=== PATIENT | male | born 1940 | race Caucasian/White ===

== ENCOUNTER 2018-03-09 11:09 | Inpatient (IN) | payer MEDICARE, OTHER ==
[2018-03-09 11:51] LABS: ADD MAN DIFF? NO
[2018-03-09] MEDS: SOD CHLORIDE 0.9% 1,000 ML IV ×2 (11:51→22:25)
[2018-03-09 11:53] LABS: BASOPHILS % 0.8 % (0.0-2.0); EOSINOPHILS # 0.2 10^3/ul (0.0-0.5); EOSINOPHILS % 3.3 % (0.0-7.0); HEMATOCRIT 33.5 % (42.0-52.0); HEMOGLOBIN 10.6 g/dl (14.0-18.0); LYMPHOCYTES % 41.3 % (15.0-51.0); MEAN CORPUSCULAR HEMOGLOBIN 29.3 pg (29.0-33.0); MEAN CORPUSCULAR HGB CONC 31.6 g/dl (32.0-37.0); MEAN CORPUSCULAR VOLUME 92.5 fl (82.0-101.0); MEAN PLATELET VOLUME 11.9 fl (7.4-10.4); MONOCYTE # 0.6 10^3/ul (0.3-0.9); MONOCYTES % 11.7 % (0.0-11.0); NEUTROPHIL # 2.1 10^3/ul (1.6-7.5); NEUTROPHILS % 42.5 % (39.0-77.0); PLATELET COUNT 132 10^3/UL (140-415); RED BLOOD COUNT 3.62 10^6/ul (4.70-6.10); RED CELL DISTRIBUTION WIDTH 13.5 % (11.5-14.5)
[2018-03-09 11:53] LABS: WHITE BLOOD COUNT 4.9 10^3/ul (4.8-10.8)
[2018-03-09 12:10] LABS: ALANINE AMINOTRANSFERASE 34 IU/L (13-69); ALBUMIN 3.5 g/dl (3.3-4.9); ALBUMIN/GLOBULIN RATIO 1.34; ALKALINE PHOSPHATASE 70 IU/L (42-121); ANION GAP 12 (8-16); ASPARTATE AMINO TRANSFERASE 22 IU/L (15-46); BILIRUBIN,INDIRECT 0.3 mg/dl (0-1.1); BILIRUBIN,TOTAL 0.3 mg/dl (0.2-1.3); BLOOD UREA NITROGEN 22 mg/dl (7-20); CALCIUM 8.7 mg/dl (8.4-10.2); CARBON DIOXIDE 27 mmol/L (21-31); CHLORIDE 105 mmol/L (97-110); GLUCOSE 141 mg/dl (70-220); LIPASE 76 U/L (23-300); POTASSIUM 4.4 mmol/L (3.5-5.1); SODIUM 140 mmol/L (135-144); TOTAL PROTEIN 6.1 g/dl (6.1-8.1)
[2018-03-09 12:22] LABS: B-TYPE NATRIURETIC PEPTIDE 305 PG/ML (0-450); TROPONIN-I < 0.012 ng/ml (0.000-0.120)
[2018-03-09] MEDS ORDERED: ACETAMINOPHEN 500 MG TAB (12:48)
[2018-03-09] MEDS: FUROSEMIDE 40 MG INJ IV (13:33)
[2018-03-09] MEDS ORDERED: BISACODYL 10 MG SUPP PR (17:30)
[2018-03-09] MEDS ORDERED: NACL 0.9% 3 ML SYG IV (17:30)
[2018-03-09] MEDS ORDERED: ONDANSETRON 4 MG INJ IV (17:30)
[2018-03-09] MEDS ORDERED: SODIUM CHLORIDE 0.9% 1L BAG IV (17:30)
[2018-03-09] MEDS ORDERED: ACETAMINOPHEN 325 MG TAB PO (17:30)
[2018-03-09] MEDS: INSULIN ASPART [NOVOLOG] 3 ML PEN SC ×2 (18:00→22:54)
[2018-03-09] MEDS ORDERED: DEXTROSE 50% 50 ML SYRINGE IV ×2 (19:00)
[2018-03-09] MEDS ORDERED: GLUCAGON 1 MG INJ IM (19:00)
[2018-03-09] MEDS ORDERED: GLUCOSE GEL 15 GRAM TUBE PO ×2 (19:00)
[2018-03-09] MEDS ORDERED: GLUCOSE GEL 15 GRAM TUBE BUCCAL (19:00)
[2018-03-09] MEDS ORDERED: RANOLAZINE (SR) 500 MG TAB PO (21:00)
[2018-03-09 21:16] LABS: CREATINE KINASE 126 IU/L (23-200)
[2018-03-09 21:30] LABS: CK INDEX 1.9; CK-MB 2.38 ng/ml (0.0-2.4); TROPONIN-I < 0.012 ng/ml (0.000-0.120)
[2018-03-09] MEDS: RIVAROXABAN 20 MG TABLET PO (22:25)
[2018-03-09] MEDS: MONTELUKAST 10 MG TAB PO (22:25)
[2018-03-09] MEDS: ROSUVASTATIN CALCIUM 40 MG TABLET PO (22:25)
[2018-03-10 03:35] LABS: HEMOGLOBIN A1C 7.9 % (0-5.9)
[2018-03-10 03:40] LABS: ALANINE AMINOTRANSFERASE 31 IU/L (13-69); ALBUMIN 3.1 g/dl (3.3-4.9); ALBUMIN/GLOBULIN RATIO 1.24; ALKALINE PHOSPHATASE 62 IU/L (42-121); ANION GAP 9 (8-16); ASPARTATE AMINO TRANSFERASE 22 IU/L (15-46); BILIRUBIN,INDIRECT 0.1 mg/dl (0-1.1); BILIRUBIN,TOTAL 0.1 mg/dl (0.2-1.3); BLOOD UREA NITROGEN 25 mg/dl (7-20); CALCIUM 8.6 mg/dl (8.4-10.2); CARBON DIOXIDE 29 mmol/L (21-31); CHLORIDE 108 mmol/L (97-110); CREATININE 1.34 mg/dl (0.61-1.24); GLUCOSE 185 mg/dl (70-220); MAGNESIUM 1.7 mg/dl (1.7-2.5); PHOSPHORUS 4.6 mg/dl (2.5-4.9); POTASSIUM 4.2 mmol/L (3.5-5.1); SODIUM 142 mmol/L (135-144); TOTAL PROTEIN 5.6 g/dl (6.1-8.1)
[2018-03-10 05:00] LABS: CREATINE KINASE 118 IU/L (23-200)
[2018-03-10 05:13] LABS: CK INDEX 2.4; CK-MB 2.86 ng/ml (0.0-2.4); TROPONIN-I < 0.012 ng/ml (0.000-0.120)
[2018-03-10] MEDS: PANTOPRAZOLE 40 MG INJ IV (06:22)
[2018-03-10 07:59] LABS: ADD UMIC YES; UR ASCORBIC ACID NEGATIVE (NEGATIVE); UR BILIRUBIN (Dip) NEGATIVE (NEGATIVE); UR BLOOD (Dip) NEGATIVE (NEGATIVE); UR CLARITY CLEAR (CLEAR); UR COLOR YELLOW (YELLOW); UR GLUCOSE (Dip) NEGATIVE (NEGATIVE); UR KETONES (Dip) NEGATIVE (NEGATIVE); UR LEUKOCYTE ESTERASE (Dip) TRACE Leu/ul (NEGATIVE); UR NITRITE (Dip) NEGATIVE (NEGATIVE); UR RBC 2 /HPF (0-5); UR SPECIFIC GRAVITY (Dip) 1.014 (1.003-1.030); UR TOTAL PROTEIN (Dip) NEGATIVE (NEGATIVE); UR UROBILINOGEN (Dip) 1+ mg/dL (NEGATIVE); UR WBC 37 /HPF (0-5)
[2018-03-10] MEDS: INSULIN ASPART [NOVOLOG] 3 ML PEN SC ×4 (08:26→20:10)
[2018-03-10] MEDS: LINAGLIPTIN 5 MG TABLET PO (08:29)
[2018-03-10] MEDS: LUBIPROSTONE 24 MCG CAP PO (08:30)
[2018-03-10] MEDS: SOLIFENACIN 5 MG TAB PO (08:30)
[2018-03-10] MEDS: CREON (24K-76K-120K) 1 CAP PO ×3 (08:30→16:45)
[2018-03-10] MEDS: LEVOTHYROXINE 75 MCG TAB PO (08:31)
[2018-03-10] MEDS: TERAZOSIN 5 MG CAP PO (08:31)
[2018-03-10 15:58] LABS: AMPHETAMINE/METHAMPHETAMINE Negative (NEGATIVE); BENZODIAZEPINES Negative (NEGATIVE); COCAINE Negative (NEGATIVE)
[2018-03-10] MEDS: CEFTRIAXONE 1 GM/50 ML (PMX) 50 ML IVPB (16:45)
[2018-03-10 17:03] LABS: BARBITURATES Negative (NEGATIVE); CANNABINOIDS Negative (NEGATIVE); OPIATES Negative (NEGATIVE)
[2018-03-10] MEDS: RIVAROXABAN 20 MG TABLET PO (17:39)
[2018-03-10] MEDS: ROSUVASTATIN CALCIUM 40 MG TABLET PO (20:11)
[2018-03-10] MEDS: MONTELUKAST 10 MG TAB PO (20:11)
[2018-03-10] MEDS: TAMSULOSIN (SR) 0.4 MG CAP PO (20:11)
[2018-03-11] MEDS: PANTOPRAZOLE 40 MG INJ IV (06:04)
[2018-03-11 07:12] LABS: ADD MAN DIFF? NO
[2018-03-11 07:17] LABS: WHITE BLOOD COUNT 5.2 10^3/ul (4.8-10.8)
[2018-03-11 07:17] LABS: BASOPHILS % 0.8 % (0.0-2.0); EOSINOPHILS # 0.2 10^3/ul (0.0-0.5); EOSINOPHILS % 3.9 % (0.0-7.0); HEMOGLOBIN 10.6 g/dl (14.0-18.0); LYMPHOCYTES # 2.2 10^3/ul (0.8-2.9); LYMPHOCYTES % 42.9 % (15.0-51.0); MEAN CORPUSCULAR HEMOGLOBIN 29.9 pg (29.0-33.0); MEAN CORPUSCULAR HGB CONC 33.1 g/dl (32.0-37.0); MEAN CORPUSCULAR VOLUME 90.1 fl (82.0-101.0); MEAN PLATELET VOLUME 12.5 fl (7.4-10.4); MONOCYTE # 0.6 10^3/ul (0.3-0.9); MONOCYTES % 10.9 % (0.0-11.0); NEUTROPHIL # 2.1 10^3/ul (1.6-7.5); NEUTROPHILS % 41.1 % (39.0-77.0); PLATELET COUNT 129 10^3/UL (140-415); RED BLOOD COUNT 3.55 10^6/ul (4.70-6.10); RED CELL DISTRIBUTION WIDTH 13.6 % (11.5-14.5)
[2018-03-11 07:47] LABS: ANION GAP 11 (8-16); BLOOD UREA NITROGEN 21 mg/dl (7-20); CALCIUM 8.5 mg/dl (8.4-10.2); CARBON DIOXIDE 27 mmol/L (21-31); CHLORIDE 104 mmol/L (97-110); CREATININE 1.05 mg/dl (0.61-1.24); GLUCOSE 197 mg/dl (70-220); POTASSIUM 4.2 mmol/L (3.5-5.1); SODIUM 138 mmol/L (135-144)
[2018-03-11] MEDS: CREON (24K-76K-120K) 1 CAP PO ×3 (08:03→17:06)
[2018-03-11] MEDS: SOLIFENACIN 5 MG TAB PO (08:03)
[2018-03-11] MEDS: LEVOTHYROXINE 75 MCG TAB PO (08:03)
[2018-03-11] MEDS: LINAGLIPTIN 5 MG TABLET PO (08:03)
[2018-03-11] MEDS: LUBIPROSTONE 24 MCG CAP PO (08:03)
[2018-03-11] MEDS: TERAZOSIN 5 MG CAP PO (08:04)
[2018-03-11] MEDS: INSULIN ASPART [NOVOLOG] 3 ML PEN SC ×4 (08:14→20:11)
[2018-03-11] MEDS: MAGNESIUM CITRATE 300 ML BTL PO (11:34)
[2018-03-11] MEDS: FUROSEMIDE 20 MG INJ IV (11:35)
[2018-03-11] MEDS: CEFTRIAXONE 1 GM/50 ML (PMX) 50 ML IVPB (15:05)
[2018-03-11] MEDS: RIVAROXABAN 20 MG TABLET PO (17:06)
[2018-03-11] MEDS: MONTELUKAST 10 MG TAB PO (20:10)
[2018-03-11] MEDS: ROSUVASTATIN CALCIUM 40 MG TABLET PO (20:10)
[2018-03-11] MEDS: TAMSULOSIN (SR) 0.4 MG CAP PO (20:10)
[2018-03-11] MEDS: MAGNESIUM HYDROXIDE 30ML CUP PO (20:11)
[2018-03-11] MEDS: DOCUSATE SODIUM 100 MG CAP PO (20:11)
[2018-03-11] MEDS: INSULIN DETEMIR [LEVEMIR] (100 UNITS/ML) SYG SC (20:14)
[2018-03-12] MEDS: PANTOPRAZOLE 40 MG INJ IV (06:35)
[2018-03-12] MEDS: CREON (24K-76K-120K) 1 CAP PO ×2 (07:35→11:48)
[2018-03-12] MEDS: LEVOTHYROXINE 75 MCG TAB PO (07:35)
[2018-03-12] MEDS: SOLIFENACIN 5 MG TAB PO (07:36)
[2018-03-12] MEDS: LINAGLIPTIN 5 MG TABLET PO (07:36)
[2018-03-12] MEDS: FUROSEMIDE 20 MG INJ IV (07:36)
[2018-03-12] MEDS: TERAZOSIN 5 MG CAP PO (07:36)
[2018-03-12] MEDS: INSULIN ASPART [NOVOLOG] 3 ML PEN SC ×2 (08:10→12:12)
[2018-03-12 09:13] LABS: ADD MAN DIFF? NO
[2018-03-12 09:19] LABS: WHITE BLOOD COUNT 5.9 10^3/ul (4.8-10.8)
[2018-03-12 09:19] LABS: BASOPHIL # 0.1 10^3/ul (0.0-0.1); BASOPHILS % 0.8 % (0.0-2.0); EOSINOPHILS # 0.2 10^3/ul (0.0-0.5); EOSINOPHILS % 2.9 % (0.0-7.0); HEMATOCRIT 36.4 % (42.0-52.0); HEMOGLOBIN 11.8 g/dl (14.0-18.0); LYMPHOCYTES % 33.2 % (15.0-51.0); MEAN CORPUSCULAR HEMOGLOBIN 29.4 pg (29.0-33.0); MEAN CORPUSCULAR HGB CONC 32.4 g/dl (32.0-37.0); MEAN CORPUSCULAR VOLUME 90.8 fl (82.0-101.0); MEAN PLATELET VOLUME 12.3 fl (7.4-10.4); MONOCYTE # 0.7 10^3/ul (0.3-0.9); MONOCYTES % 12.4 % (0.0-11.0); NEUTROPHILS % 50.2 % (39.0-77.0); PLATELET COUNT 141 10^3/UL (140-415); RED BLOOD COUNT 4.01 10^6/ul (4.70-6.10); RED CELL DISTRIBUTION WIDTH 13.4 % (11.5-14.5)
[2018-03-12 09:47] LABS: ANION GAP 14 (8-16); BLOOD UREA NITROGEN 22 mg/dl (7-20); CALCIUM 9.2 mg/dl (8.4-10.2); CARBON DIOXIDE 31 mmol/L (21-31); CHLORIDE 99 mmol/L (97-110); CREATININE 1.13 mg/dl (0.61-1.24); GLUCOSE 239 mg/dl (70-220); POTASSIUM 4.5 mmol/L (3.5-5.1); SODIUM 139 mmol/L (135-144)
[2018-03-12] MEDS: MAGNESIUM HYDROXIDE 30ML CUP PO (11:48)
[2018-03-12] MEDS: CEFTRIAXONE 1 GM/50 ML (PMX) 50 ML IVPB (16:00)
== END 2018-03-12 16:52 | disposition home or self-care (01) | DRG 917 ==
LOC: E/R 11:09 → TEL 14:57
DX: T40.2X1A Poisoning by other opioids, accidental (unintentional), initial encounter (principal); G93.41 Metabolic encephalopathy; I50.21 Acute systolic (congestive) heart failure; N17.9 Acute kidney failure, unspecified; N39.0 Urinary tract infection, site not specified; I11.0 Hypertensive heart disease with heart failure; E66.01 Morbid (severe) obesity due to excess calories; E11.21 Type 2 diabetes mellitus with diabetic nephropathy; E11.40 Type 2 diabetes mellitus with diabetic neuropathy, unspecified; E03.9 Hypothyroidism, unspecified; E78.5 Hyperlipidemia, unspecified; I95.9 Hypotension, unspecified; I48.0 Paroxysmal atrial fibrillation; M19.90 Unspecified osteoarthritis, unspecified site; M10.9 Gout, unspecified; N40.0 Benign prostatic hyperplasia without lower urinary tract symptoms; Z68.36 Body mass index [BMI] 36.0-36.9, adult; Z86.718 Personal history of other venous thrombosis and embolism; Z79.4 Long term (current) use of insulin; Z79.02 Long term (current) use of antithrombotics/antiplatelets
CPT/HCPCS: 36415; 71045; 74176; 80048; 80053; 80307; 81001; 82550; 82553; 82962; 83036; 83690; 83735; 83880; 84100; 84443; 84484; 85025; 87040; 93005; 93306; 93970; 96374; 99285-25